=== PATIENT | female | born 1965 | race Caucasian/White ===

== ENCOUNTER 2016-11-30 06:38 | Outpatient (CLI) | payer OTHER ==
[~2016-11-30] VITALS: Ht 152.4 cm; Wt 72.6 kg
[2016-11-30] MEDS ORDERED: VIT1TABL5 PO (08:40)
[2016-11-30] MEDS ORDERED: METF500T4 PO (08:45)
[2016-11-30] MEDS ORDERED: PHEN37.53 PO (08:45)
== END 2016-11-30 08:47 ==
LOC: PREOP 06:38
PROVIDERS: ATTEND Surgery
DX: Z01.818 Encounter for other preprocedural examination (principal); Z12.11 Encounter for screening for malignant neoplasm of colon

== ENCOUNTER 2016-12-04 07:41 | Day surgery (SDC) | payer OTHER ==
[~2016-12-04] VITALS: Ht 152.4 cm; Wt 72.6 kg
[~2016-12-04 07:41] MED LIST: METF500T4 PO; NS IV 500 ML 500 ML ONE; PHEN37.53 PO; VIT1TABL5 PO
--- OUTSIDE RECORDS SUMMARY | 2016-12-04 07:43 | XMS REPORT | Continuity of Care Document ---
Author Author [facility] Organization [facility] Address Unknown Phone Unavailable Care Team Providers Care Township Clerk Name Role Phone DORIE TITUS DO PCP Insurance Providers Payer Name Policy Number Subscriber Name Relationship [facility] [id number] Trent Resendiz 20 Self / Same As Patient Advance Directives Directive Response Recorded Date/Time Advance Directives No 11/30/16 8:40am Organ Donor Yes 11/30/16 8:40am Resuscitation Status Full Code 11/30/16 8:40am Problems No problem information available. Medications Current Home Medications Medication Dose Units Route Directions Days/Qty Instructions Start Date Vit B12/Lm-Folate Ca/Vit B6/B2 1 Tab 1 Tab Oral Daily 11/30/16 Phentermine Hcl 37.5 Mg 37.5 Mg Oral Daily 11/30/16 Metformin Hcl 500 Mg 500 Mg Oral Daily 11/30/16 Social History Social History Problem Response Recorded Date/Time Alcohol Use Rarely Uses 11/30/2016 8:40am Recreational Drug Use No 11/30/2016 8:40am Recent Foreign Travel No 11/30/2016 8:40am Recent Infectious Disease Exposure No 11/30/2016 8:40am Smoking Status Never a Smoker 11/30/2016 8:40am Recent Hopitalizations No 11/30/2016 8:40am Query Response Start Date Stop Date Smoking Status Never a Smoker Hospital Discharge Instructions No hospital discharge instructions. Plan of Care Discharge Date 11/30/16 8:47am Prescriptions See Medication Section Functional Status No functional status results. Allergies, Adverse Reactions, Alerts No known allergies. Immunizations No immunization records. Vital Signs Acute Vital Signs Vital Response Date/Time Height (Feet) 5 feet 11/30/2016 8:44am Height (Inches) 0.00 inches 11/30/2016 8:44am Height (Calculated Centimeters) 152.140289 cm 11/30/2016 8:44am Weight (Pounds) 160 pounds 11/30/2016 8:44am Weight (Ounces) 0.0 oz 11/30/2016 8:44am Weight (Calculated Grams) 85886.78 gm 11/30/2016 8:44am Weight (Calculated Kilograms) 72.733359 kilograms 11/30/2016 8:44am Calculated BMI 31.3 11/30/2016 8:44am Results No known relevant diagnostic tests, laboratory data and/or discharge summary. Procedures No known history of procedures. Encounters Encounter Location Arrival/Admit Date Discharge/Depart Date Attending Provider Departed Clinic [facility] 11/30/16 6:38am 11/30/16 8: 47am MARCIO FELIX MD
--- OUTSIDE RECORDS SUMMARY | 2016-12-04 07:43 | XMS REPORT | Continuity of Care Document ---
Author Author [facility] Organization [facility] Address Unknown Phone Unavailable Care Team Providers Care Pipe Layer Name Role Phone DORIE TITUS DO PCP Insurance Providers Payer Name Policy Number Subscriber Name Relationship [facility] [id number] Trent Resendiz 20 Self / Same As [...] 0.00 inches 11/30/2016 8:44am Height (Calculated Centimeters) 152.514271 cm 11/30/2016 8:44am Weight (Pounds) 160 pounds 11/30/2016 8:44am Weight (Ounces) 0.0 oz 11/30/2016 8:44am Weight (Calculated Grams) 64138.78 gm 11/30/2016 8:44am Weight (Calculated Kilograms) 72.800954 kilograms 11/30/2016 8:44am Calculated BMI 31.3 11/30/2016 8:44am Results No known relevant diagnostic tests, laboratory data and/or discharge summary. Procedures No known history of procedures. Encounters Encounter Location Arrival/Admit Date Discharge/Depart Date Attending Provider Departed Clinic [facility] 11/30/16 6:38am 11/30/16 8: 47am MARCIO FELIX MD
[2016-12-04] MEDS ORDERED: NALOXONE 0.4 MG/ML 1 ML (NARCAN) VIAL IVP PRN (08:00)
[2016-12-04] MEDS ORDERED: FLUMAZENIL (ROMAZICON) 0.1 MG/ML 5 ML VIAL INJ PRN (08:00)
[2016-12-04] MEDS ORDERED: NS IV 500 ML 500 ML IV PRN (08:00)
[2016-12-04 08:03] VITALS: BP 111/71
--- NOTE | 2016-12-04 08:14 | Pre-Op Note & Conscious Sedat ---
Pre-Operative Progress Note H&P Reviewed The H&P was reviewed, patient examined and no changes noted. Date H&P Reviewed: Dec 04, 2016 Time H&P Reviewed: 08:14 Pre-Op Diagnosis: Screening Conscious Sedation Pre-Proced ASA Class: 2 Airway Mallampati Classification: ([place]nak appropriate class) I. II. III, IV Lungs Heart ASA score ASA 1: a normal healthy patient ASA 2: a patient with a mild systemic disease (mid diabetes, controlled hypertension, obesity ASA 3: a patient with a severe systemic disease that limits activity (angina , COPD, prior Myocardial infarction) ASA 4: a patient with an incapacitating disease that is a constant threat to life (CHF, renal failure) ASA 5: a moribund patient not expected to survive 24 hrs. (ruptured aneurysm) ASA 6: a declared brain patient whose organs are being harvested. For emergent operations, add the letter E after the classification Grade 2 Sedation Plan: Discussed options with patient/fam Note The patient is an appropriate candidate to undergo the planned procedure, sedation, and anesthesia. The patient immediately re-assessed prior to indication. MARCIO FELIX MD Dec 04, 2016 8:14 am
[2016-12-04] MEDS ORDERED: fentaNYL INJECTION 100 MCG/2 ML AMP ONE ×2 (08:24)
[2016-12-04] MEDS ORDERED: MIDAZOLAM 2 MG/2 ML (VERSED) VIAL ONE ×4 (08:25)
[2016-12-04] MEDS: fentaNYL INJECTION 100 MCG/2 ML AMP IVP PRN ×4 (08:33→08:45)
[2016-12-04] MEDS: MIDAZOLAM 2 MG/2 ML (VERSED) VIAL IVP PRN ×3 (08:36→08:43)
--- NOTE | 2016-12-04 08:57 | Progress Note-Post Operative ---
Post-Operative Progess Note Pre-Operative Diagnosis Screening Post-Operative Diagnosis iinternal hemorrhoids. No polyps Post-Op Procedure Note Date of Procedure: Dec 04, 2016 Name of Procedure: colonoscopy to cecum Anesthesia Type sedation MARCIO FELIX MD Dec 04, 2016 8:57 am
--- NOTE | 2016-12-04 09:00 | Discharge Inst-Simple/Standard ---
Discharge Inst-Standard Discharge Medications New, Converted or Re-Newed RX: Other Patient Instructions/Follow Up Plan of Care/Instructions/FU: Repeat in 10 years Activity as Tolerated: Yes Discharge Diet: No Restrictions MARCIO FELIX MD Dec 04, 2016 8:59 am
[2016-12-04 09:20] VITALS: BP 110/71
[2016-12-04 10:00] VITALS: BP 116/80
[2016-12-04 10:30] VITALS: BP 116/80
--- NOTE | 2016-12-04 10:42 | PROCEDURE REPORT ---
PROCEDURE PHYSICIAN: MARCIO FELIX DATE OF PROCEDURE: 12/04/2016 PROCEDURE: Screening colonoscopy. SURGEON: Raul INDICATION FOR THE PROCEDURE: This lady came in for screening colonoscopy. She denied any family history of colon cancer or polyps. Informed consent was obtained after reviewing the procedure in detail. DESCRIPTION OF PROCEDURE: She was placed in left lateral decubitus position and her vital signs were monitored. Conscious sedation was achieved using Versed and fentanyl. Digital rectal examination was unremarkable. The colonoscope was then introduced into the rectum and advanced to the cecum. It was then withdrawn slowly and the mucosa examined in a systematic fashion. FINDINGS: A small degree of internal hemorrhoids. There was no polyp. She tolerated the procedure well and was taken back to the nursing area in a stable condition. IMPRESSION: 1. Screening colonoscopy. 2. No polyps. 3. Incidental, small degree of hemorrhoids. 4. Recommend repeating in 10 years. Job ID: [id number] Dictated Date: 12/04/2016 08:54:30 Utility Hand Date: 12/04/2016 10:39:25 / [place]
== END 2016-12-04 10:30 | disposition home or self-care (01) ==
LOC: SDC 07:41
PROVIDERS: ATTEND Surgery
DX: Z12.11 Encounter for screening for malignant neoplasm of colon (principal); K64.8 Other hemorrhoids

== ENCOUNTER → 2017-01-10 | Outpatient (CLI) | payer OTHER ==
[~2017-01-10] MED LIST changes: -NS IV 500 ML 500 ML ONE
--- OUTSIDE RECORDS SUMMARY | 2017-01-10 12:25 | XMS REPORT | Continuity of Care Document ---
Author Author [facility] Organization [facility] Address Unknown Phone Unavailable Care Team Providers Care Ladle Puller Name Role Phone DORIE TITUS DO PCP Insurance Providers Payer Name Policy Number Subscriber Name Relationship [facility] [id number] Trent Resendiz 20 Self / Same As [...] 0.00 inches 11/30/2016 8:44am Height (Calculated Centimeters) 152.969578 cm 11/30/2016 8:44am Weight (Pounds) 160 pounds 11/30/2016 8:44am Weight (Ounces) 0.0 oz 11/30/2016 8:44am Weight (Calculated Grams) 29043.78 gm 11/30/2016 8:44am Weight (Calculated Kilograms) 72.893682 kilograms 11/30/2016 8:44am Calculated BMI 31.3 11/30/2016 8:44am Results No known relevant diagnostic tests, laboratory data and/or discharge summary. Procedures No known history of procedures. Encounters Encounter Location Arrival/Admit Date Discharge/Depart Date Attending Provider Departed Clinic [facility] 11/30/16 6:38am 11/30/16 8: 47am MARCIO FELIX MD
--- NOTE | 2017-01-10 13:22 | Diagnostic Imaging Report ---
PROCEDURE: US Thyroid. TECHNIQUE: Multiple real-time grayscale images were obtained of the thyroid in various projections. INDICATION: Thyroid nodule. COMPARISON: 07/24/2016. FINDINGS: The right thyroid lobe measures 3.6 x 1.2 x 1.4 cm not substantially changed from prior. It contains a hypoechoic but solid mass measuring 5 mm long axis unchanged from prior. The mass is well defined and shows no obvious calcifications. The left thyroid lobe is nonfocal, stable, and unremarkable measuring 4.0 x 0.9 x 1.3 cm. IMPRESSION: A solid hypoechoic well-defined right lobe thyroid nodule measuring 5 mm unchanged from prior. Dictated by: Dictated on workstation # [id number]
== END ==
LOC: RAD 12:21
PROVIDERS: ATTEND Internal Medicine
DX: E04.1 Nontoxic single thyroid nodule (principal)
CPT/HCPCS: 76536

== ENCOUNTER 2018-11-22 12:38 | Outpatient (CLI) | payer BC ==
[~2018-11-22] VITALS: Ht 152.4 cm; Wt 72.6 kg
[~2018-11-22 12:38] MED LIST changes: +METF-397 PO; -METF500T4 PO
[2018-11-22] MEDS ORDERED: LACTATED RINGERS 2,000 ML IV ONE (12:48)
[2018-11-22] MEDS: LACTATED RINGERS 1,000 ML IV SCH ×2 (13:00→14:15)
[2018-11-22 13:24] LABS: HEMOGLOBIN 12.7 G/DL (11.5-16.0); MEAN PLATELET VOLUME 8.8 FL (7.4-10.4); RED BLOOD COUNT 4.44 10^6/uL (4.35-5.85)
[2018-11-22] MEDS ORDERED: ONDANSETRON 4 MG/2 ML (SDV) Z0FRAN IVP PRN (13:30)
[2018-11-22 13:44] LABS: ALANINE AMINOTRANSFERASE 17 U/L (0-55); ALBUMIN 3.9 GM/DL (3.2-4.5); ALKALINE PHOSPHATASE 47 U/L (40-136); BILIRUBIN,TOTAL 0.5 MG/DL (0.1-1.0); BUN/CREATININE RATIO 16; CALCIUM 8.8 MG/DL (8.5-10.1); CARBON DIOXIDE 25 MMOL/L (21-32); CHLORIDE 104 MMOL/L (98-107); CREATININE SERUM 0.74 MG/DL (0.60-1.30); GFR ESTIMATED > 60; GLUCOSE 93 MG/DL (70-105); POTASSIUM 3.5 MMOL/L (3.6-5.0); SODIUM 140 MMOL/L (135-145); TOTAL PROTEIN 6.2 GM/DL (6.4-8.2)
[2018-11-22 15:25] VITALS: BP 130/76
== END 2018-11-22 15:25 | disposition home or self-care (01) ==
LOC: SDC 12:38
PROVIDERS: ATTEND Internal Medicine
DX: E86.0 Dehydration (principal)
CPT/HCPCS: 36415; 80053; 85027; 96360; 96361

== ENCOUNTER → 2019-02-17 | Outpatient (CLI) | payer BC ==
[~2019-02-17] VITALS: Ht 152.4 cm; Wt 63.5 kg
[~2019-02-17] MED LIST changes: +CATHETER FLUSH 10 ML SYR IV PRN
[2019-02-17 08:15] VITALS: BP 132/79
--- NOTE | 2019-02-17 18:13 | STRESS TEST ---
DATE OF SERVICE: 02/17/2019 NUCLEAR MYOVIEW REPORT REFERRING PHYSICIAN: Carolann Lee APRN SUMMARY: The patient was injected with 10.19 mCi of technetium-99 Myoview and the resting images were obtained with peak stress level, a 31.6 mCi of technetium-99 Myoview were injected and the stress images were acquired. The test was supervised by Dr. Lee. The resting and stress images were reviewed and compared in the short axis, horizontal long axis, and vertical long axis views. Review of the images showed breast attenuation with typical female pattern. No significant ischemia or infarction was seen. SSS is 2, SDS 1, TID value 1.0. On the gated images, the left ventricle appeared to be normal size with normal contractility. Calculated ejection fraction 66%. CONCLUSION: 1. Typical female pattern with no significant ischemia or infarction on SPECT images. 2. Normal left ventricular size with normal contractility. Calculated ejection fraction 66%. Job ID: [id number] DocumentID: [id number] Dictated Date: 02/17/2019 16:02:35 Lane Attendant Date: 02/17/2019 18:12:31 Dictated By: JOSH DUCKWORTH MD
== END ==
LOC: CARD 06:58
PROVIDERS: ATTEND Nurse Practitioner Family
DX: R53.83 Other fatigue (principal)
CPT/HCPCS: 78452; 93017

== ENCOUNTER 2019-05-19 08:41 | Emergency (ER) | payer BC ==
[~2019-05-19] VITALS: Ht 152.4 cm; Wt 66.2 kg
[~2019-05-19 08:41] MED LIST changes: -CATHETER FLUSH 10 ML SYR IV PRN
[2019-05-19] MEDS ORDERED: KETOROLAC 30 MG/ML VIAL IM ONE (09:30)
--- NOTE | 2019-05-19 09:34 | ED Chest Pain ---
General Chief Complaint: Chest Wall Stated Complaint: RIB/NECK PAIN Nursing Triage Note: PATIENT STATES THAT SHE HAS HAD PAIN IN HER RIBS X1 WEEK. SHE INJURED HERSELF WHILE TRYING TO REACH DOWN AND GET A BABY OUT OF A CRIB. Nursing Sepsis Screen: No Definite Risk Source: patient Exam Limitations: no limitations History of Present Illness Date Seen by Provider: May 19, 2019 Time Seen by Provider: 09:21 Initial Comments The patient presents to the ER by private conveyance with chief complaint of progressively worsening right rib pain for the last week. Last Sunday over 7 days ago she was leaning into the crib to diamond picker her grandson who was not feeling well so he did not help her and she leaned her right ribs against the railing and felt a popping sensation and has had pain ever since. She's used Aleve with minimal relief. She's having no shortness of breath but she says it hurts when she takes deep breaths. No cough fevers chills nausea vomiting. No history of rib fractures or rheumatoid arthritis. She endorses pain to palpation. 2 days ago she started having some tenderness on the right side of her neck. She has a history of chronic, mild neck and back pain but no history of surgeries. No numbness tingling, loss of control of bowel or bladder or weakness. She rates the pain as a 7-8 out of 10. Allergies and Home Medications Allergies Coded Allergies: No Known Drug Allergies (Verified , 12/04/16) Home Medications Metformin HCl 500 Mg Tablet, 500 MG PO DAILY, (Reported) Phentermine HCl 37.5 Mg Tablet, 37.5 MG PO DAILY, (Reported) Vit B12/Lm-Folate Ca/Vit B6/B2 1 Tab Tablet, 1 TAB PO DAILY, (Reported) Patient Home Medication List Home Medication List Reviewed: Yes Review of Systems Review of Systems Constitutional: No chills, No diaphoresis EENTM: No Blurred Vision, No Double Vision Respiratory: Denies Cough, Denies Shortness of Air Cardiovascular: See HPI, Chest Pain; Denies Edema, Denies Palpitations Gastrointestinal: Denies Abdominal Pain, Denies Constipated, Denies Diarrhea, D enies Nausea Genitourinary: Denies Burning, Denies Discharge Musculoskeletal: No back pain, No joint pain Skin: No pruritus, No rash Past Jjbzhlh-Xwkuaz-Ivsfio Hx Patient Social History Alcohol Use: Denies Use Recreational Drug Use: No Smoking Status: Never a Smoker 2nd Hand Smoke Exposure: No Recent Foreign Travel: No Contact w/Someone Who Travel: No Recent Infectious Disease Expo: No Recent Hopitalizations: No Physical Abuse: No Sexual Abuse: No Immunizations Up To Date Tetanus Booster (TDap): Unknown Seasonal Allergies Seasonal Allergies: No Past Medical History Surgeries: Yes Gallbladder, Hysterectomy Respiratory: No Cardiac: Yes Heart Murmur Neurological: No Gastrointestinal: Yes Chronic Constipation Musculoskeletal: No Endocrine: No (takes metformin to help absorb vitamin B) Cancer: No Psychosocial: No Integumentary: No Blood Disorders: Yes (anemia) Physical Exam Vital Signs Vital Signs - First Documented 05/19/19 08:48 Temp 97.0 Pulse 75 Resp 18 B/P (MAP) 140/103 (115) Pulse Ox 100 Capillary Refill : Less Than 3 Seconds Height, Weight, BMI Height: 5'0" Weight: 146lbs. 0oz. 66.964266bm; 27.3 BMI Method:Stated General Appearance: WD/WN, Mild Distress HEENT: Pharynx Normal, Moist Mucous Membranes Neck: Full Range of Motion, Tender Lateral (right side), Other (held slightly in traction to the right) Respiratory: Lungs Clear, Normal Breath Sounds, No Accessory Muscle Use, No Respiratory Distress Cardiovascular: Regular Rate, Rhythm, No Edema, Normal Peripheral Pulses Neurologic/Psychiatric: Alert, Oriented x3 Other comments Right ribs in the midaxillary line at about the level of the nipple are tender to direct palpation. No deformity, ecchymoses or rash. Progress/Results/Core Measures Results/Orders My Orders Orders - KATHRINE FAN Ketorolac Injection (Toradol Injection) (05/19/19 09:30) Ribs, Right 2-3 Views (05/19/19 09:28) Medications Given in ED Current Medications Medications Dose Ordered Sig/Lizette Route Start Time Stop Time Status Last Admin Dose Admin Ketorolac Tromethamine 60 mg ONCE ONCE IM 05/19/19 09:30 05/19/19 09:31 DC 05/19/19 09:37 60 MG Vital Signs/I&O 05/19/19 08:48 Temp 97.0 Pulse 75 Resp 18 B/P (MAP) 140/103 (115) Pulse Ox 100 Blood Pressure Mean: 115 Progress Progress Note : Time: 09:33 Progress Note Right rib x-rays, Toradol and reevaluation. Diagnostic Imaging Diagonstic Imaging: Xray Plain Films/CT/US/NM/MRI: chest (right ribs 2-3 views) Comments NAME: TRENT RESENDIZ [facility] REC#: [id number] PT STATUS: REG ER : [id number] PHYSICIAN: KATHRINE FAN MD ADMIT DATE: 05/19/19/ER Draft Date of Exam:05/19/19 RIBS, RIGHT 2-3 VIEWS INDICATION: Right rib pain for one week. Time of exam: 9:47 AM Multiple views of right ribs were obtained. No displaced rib fracture is seen. There is subsegmental atelectasis or scarring in the right base. No pneumothorax is seen. IMPRESSION: No displaced rib fracture is detected. Dictated on workstation # [id number] Dict: 05/19/19 0955 Trans: 05/19/19 0[facility] [id number] Interpreted by: KJ LEVI MD Electronically signed by: Reviewed: Reviewed by Me Departure Impression Primary Impression: Rib pain Disposition: 01 HOME, SELF-CARE Condition: Stable Departure-Patient Inst. Decision time for Depature: 10:52 Referrals: DORIE TITUS DO (PCP) Primary Care Physician KEN TITUS DNP (Family) Primary Care Physician Patient Instructions: Bruised Rib (DC) Add. Discharge Instructions: Heating pads, splinting, deep breathing exercises, Tylenol and Aleve. For the spasms in your neck you can use cyclobenzaprine 1 tablet every 8 hours as necessary. If your pain is limiting your function then you can use the tramadol 1 tablet every 6 hours as needed but will cause constipation and drowsiness. Follow-up with primary care as necessary. All discharge instructions reviewed with patient and/or family. Voiced understanding. Scripts Cyclobenzaprine HCl (Cyclobenzaprine HCl) 10 Mg Tablet 10 MG PO Q8H PRN for SPASMS, #15 TAB 0 Refills Prov: KATHRINE FAN 05/19/19 Tramadol HCl (Tramadol HCl) 50 Mg Tablet 50 MG PO Q6H PRN for PAIN for 3 Days, #12 TAB 0 Refills Prov: KATHRINE FAN 05/19/19 KATHRINE FAN May 19, 2019 09:33
--- NOTE | 2019-05-19 09:59 | Diagnostic Imaging Report ---
INDICATION: Right rib pain for one week. Time of exam: 9:47 AM Multiple views of right ribs were obtained. No displaced rib fracture is seen. There is subsegmental atelectasis or scarring in the right base. No pneumothorax is seen. IMPRESSION: No displaced rib fracture is detected. Dictated by: Dictated on workstation # [id number]
[2019-05-19] MEDS ORDERED: TRAM50TA2 PO (10:54)
[2019-05-19] MEDS ORDERED: CYCL10TA9 PO (10:54)
[2019-05-19 11:07] VITALS: BP 140/103
== END 2019-05-19 11:08 | disposition home or self-care (01) ==
LOC: EDUNIT# 08:41 → ER 08:42
DX: R07.81 Pleurodynia (principal); D64.9 Anemia, unspecified; Z90.710 Acquired absence of both cervix and uterus; Z87.19 Personal history of other diseases of the digestive system; Z79.84 Long term (current) use of oral hypoglycemic drugs
CPT/HCPCS: 71100